=== PATIENT | male | born 1975 ===

== ENCOUNTER 2022-11-28 23:45 | Emergency (ER) | payer SELFPAY ==
[2022-11-29] MEDS ORDERED: Cyclobenzaprine 10 MG Tab PO ONE (00:59)
[2022-11-29] MEDS ORDERED: Ibuprofen 600 MG Tab PO ONE (00:59)
== END 2022-11-29 01:09 | disposition home or self-care (01) ==
LOC: MW.ED 23:45
DX: M25.512 Pain in left shoulder (principal); Z88.0 Allergy status to penicillin
CPT/HCPCS: 99283; A9270